=== PATIENT | male | born 1990 | race African-American/Black ===

== ENCOUNTER 2017-06-06 09:32 | Emergency (ER) | payer MEDICAID ==
[~2017-06-06] VITALS: Ht 170.2 cm; Wt 70.0 kg
[2017-06-06] MEDS ORDERED: ALBUTEROL (0.5%) 2.5MG/0.5ML NEB HHN ONE (10:00)
[2017-06-06 13:05] VITALS: BP 114/59
== END 2017-06-06 13:20 | disposition home or self-care (01) ==
LOC: ER 10:03
DX: J98.01 Acute bronchospasm (principal)
CPT/HCPCS: 71020; 99284; J7611

== ENCOUNTER 2021-03-11 00:34 | Emergency (ER) | payer MEDICAID ==
[~2021-03-11] VITALS: Ht 170.2 cm; Wt 79.0 kg
[2021-03-11 01:35] LABS: BASOPHILS % 0.6 % (0.0-2.0); EOSINOPHILS % 1.6 % (0.0-5.0); HEMATOCRIT. 38.1 % (42.0-52.0); LYMPHOCYTES % 27.7 % (20.0-50.0); MEAN CORPUSCULAR HEMOGLOBIN 30.6 pg (28.0-32.0); MEAN CORPUSCULAR VOLUME 89.6 fL (80.0-94.0); MEAN PLATELET VOLUME 6.5 fl (7.4-10.4); MONOCYTES % 7.7 % (2.0-8.0); NEUTROPHILS % 62.4 % (40.0-76.0); PLATELET 292 x1000/uL (130-400); RED BLOOD CELL COUNT 4.25 mill/uL (4.7-6.1); RED CELL DISTRIBUTION WIDTH 13.1 % (11.6-14.6)
[2021-03-11 01:41] LABS: CHLORIDE 109 mEq/L (98-107)
[2021-03-11 02:48] VITALS: BP 131/84
[2021-03-13 04:12] LABS: NEISSERIA GONORRHOEAE NAA Negative (Negative)
== END 2021-03-11 02:48 | disposition home or self-care (01) ==
LOC: ER 00:34
DX: R07.89 Other chest pain (principal); Z11.3 Encounter for screening for infections with a predominantly sexual mode of transmission
CPT/HCPCS: 36415; 71045; 80053; 84484; 85025; 85379; 86592; 86694; 86695; 86696; 87491; 87591; 93005; 99285